=== PATIENT | female | born 1950 | race Caucasian/White ===

== ENCOUNTER → 2024-04-23 11:15 | Outpatient (CLI) | payer BC, SELFPAY ==
[2024-04-24 14:38] LABS: Candida species Negative (Negative); Gardnerella vaginalis Negative (Negative); Trichomoas vaginalis Negative (Negative)
== END ==
PROVIDERS: PCP Family Medicine; Visit Provider Obstetrics & Gynecology
DX: N89.8 Other specified noninflammatory disorders of vagina (principal)
CPT/HCPCS: 87480; 87510; 87660

== ENCOUNTER → 2024-06-19 15:54 | Outpatient (CLI) | payer BC, SELFPAY ==
[2024-06-19 16:33] LABS: Appearance Urine UA CLEAR; Bilirubin Urine UA NEGATIVE (NEGATIVE); Color Urine UA YELLOW; Glucose Urine UA NEGATIVE (Negative); Ketones Urine UA NEGATIVE (NEGATIVE); Leukocyte Esterase Urine UA NEGATIVE (NEGATIVE); Nitrite Urine UA NEGATIVE (Negative); Occult Blood Urine UA NEGATIVE (Negative); Protein Urine UA NEGATIVE (Negative); Specific Gravity Urine UA <=1.005 (1.000-1.035); Urobilinogen Urine UA 0.2 E.U./dL (0.2)
[2024-06-19 16:42] LABS: Bacteria Urine None Seen; Culture Indicated Urine Cult Not Indicated; RBC Urine None Seen (0-5/HPF); Squamous Epithelial Cell Urine None Seen (0-5/HPF); Urine Volume 10mL (spun); WBC Urine None Seen (0-5/HPF)
== END ==
PROVIDERS: PCP Family Medicine; Referring Provider Obstetrics & Gynecology; Visit Provider Obstetrics & Gynecology
DX: R30.0 Dysuria (principal)
CPT/HCPCS: 81001

== ENCOUNTER → 2024-06-23 14:33 | Outpatient (CLI) | payer BC, SELFPAY | PROVIDERS: PCP Family Medicine; Visit Provider Obstetrics & Gynecology | DX: R30.0 Dysuria (principal) | CPT/HCPCS: 87086 ==

== ENCOUNTER 2024-08-20 14:05 | Emergency (ER) | payer BC, SELFPAY ==
[2024-08-20] VITALS (12 sets, daily range): BP systolic 139–202; BP diastolic 68–132; PULSE 70–91; RESP 14–16; TEMP 36.7; O2SAT 97–100; BMI 23.1
--- NOTE | 2024-08-20 14:47 | EKG_ITS ---
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
[2024-08-20 14:49] LABS: Add Manual Diff / Slide Review NO; Basophils Absolute Auto 100 /uL (0-100); Eosinophils Absolute Auto 100 /uL (0-450); Eosinophils Percent Auto 1.5 % (2-4); Hematocrit 41.8 % (36-46); Hemoglobin 14.2 g/dL (12.0-16.0); Lymphocytes Absolute Auto 2300 /uL (1100-4500); Lymphocytes Percent Auto 35.1 % (25-40); Mean Corpuscular HGB Conc 33.9 % (30-36); Mean Corpuscular Hemoglobin 30.4 PG (26-34); Mean Corpuscular Volume 89.8 fL (80-100); Monocytes Absolute Auto 500 /uL (0-900); Monocytes Percent Auto 7.5 % (3-14); Neutrophils Absolute Auto 3600 /uL (1500-7000); Neutrophils Percent Auto 54.9 % (50-75); Platelet Count 286 X10^3/uL (150-400); Red Blood Cell Count 4.66 X10^6/uL (4.0-5.2); Red Cell Distribution Width 13.4 % (11.6-14.8); White Blood Cell Count 6.5 X10^3/uL (4.5-11.0)
[2024-08-20 15:02] LABS: Alanine Aminotransferase 25 IU/L (<35); Albumin 4.4 g/dL (3.5-5.0); Albumin Globulin Ratio 1.4 (1.0-2.8); Alkaline Phosphatase 77 U/L (38-126); Aspartate Aminotransferase 35 IU/L (14-36); BUN Creatinine Ratio 18.7 (6-22); Blood Urea Nitrogen 14 mg/dL (7-17); Calcium 9.1 mg/dL (8.4-10.2); Carbon Dioxide 24 mmol/L (22-32); Chloride 107 mmol/L (98-107); Cholesterol 279 mg/dL (140-199); Estimated Glomerular Filt Rate > 60 mL/min (>60); Globulin 3.2 g/dL (1.7-4.1); Glucose 99 mg/dL (80-110); HDL Cholesterol 52 mg/dL (40-60); HEMOLYSIS 17 (0-50); LDL Cholesterol Calculated 203 mg/dL (<100); Potassium 4.1 mmol/L (3.4-5.1); Sodium 137 mmol/L (137-145); Total Protein 7.6 g/dL (6.3-8.2); Triglycerides 120 mg/dL (35-150)
[2024-08-20 15:05] LABS: Hemoglobin A1C% w Est Avg Glu 5.5 % (4.0-6.0)
--- NOTE | 2024-08-20 15:49 | ED_ITS ---
HPI - Neuro Symptoms/Deficit General Chief Complaint: Neuro Symptoms/Deficit Stated Complaint: possible TIA Time Seen by Provider: 08/20/24 14:28 Source: patient Mode of arrival: Ambulatory History of Present Illness HPI Narrative: 74-year-old woman with a history of hypothyroid treated with [place] thyroid. Active lifestyle and minimal interaction with allopathic medical systems. States she had high cholesterol over 20 years ago the last time it was checked, has never been diagnosed with hypertension and does not have diabetes. She was seen by Ophthalmology today after an episode yesterday with cuevas cloud moving across the lower right eye visual field with loss of vision in the lower half of the visual field lasting approximately 20 seconds. Mild queasiness but no vomiting. No significant headache. She states she does have ocular migraines but this was distinctly different. Neurology Physician was concerned for TIA/stroke and send patient over for further evaluation. On Anticoagulants: No Related Data Home Medications Medication Instructions Recorded Confirmed thyroid (pork) 15 mg tablet 15 mg PO DAILY 04/05/22 06/23/24 ([facility] Thyroid) thyroid (pork) 60 mg tablet 60 mg PO DAILY 04/05/22 06/23/24 ([facility] Thyroid) Allergies Allergy/AdvReac Type Severity Reaction Status Date / Time neomycin Allergy Severe cellulitus Verified 06/23/24 14:12 hyaluronidase Allergy Intermediate eye Verified 06/23/24 14:12 swelling codeine [CODEINE] Allergy Unknown Verified 06/23/24 14:12 doxycycline [DOXYCYCLINE] Allergy Unknown Verified 06/23/24 14:12 Penicillins [PENICILLINS] Allergy Unknown Verified 06/23/24 14:12 Sulfa (Sulfonamide Allergy Unknown Verified 06/23/24 14:12 Antibiotics) [SULFA (SULFONAMIDE ANTIBIOTICS)] lidocaine AdvReac Intermediate Swelling Verified 06/23/24 14:12 SANDRA AdvReac Hives Uncoded 06/23/24 14:12 edta AdvReac Uncoded 06/23/24 14:12 hyaluronic acid AdvReac hives Uncoded 06/23/24 14:12 Review of Systems Review of Systems Narrative: Pertinent positive and negative findings as per HPI Hematologic/Lymphatic On Anticoagulants: No Patient History Medical History (Updated 08/20/24 @ 17:42 by Shavon Gandhi MD) Acquired short leg syndrome on left Chronic right-sided low back pain without sciatica Somatic dysfunction of abdominal region Sacral region somatic dysfunction Segmental and somatic dysfunction of pelvic region Lumbar region somatic dysfunction Thoracic region somatic dysfunction Cervical somatic dysfunction Cranial somatic dysfunction Skin problem (~2017) Anxiety Hip disease Mumps (~1954) Measles (~1954) Herpes Chicken pox (~1956) BPV (benign positional vertigo) Tinnitus Recurrent sinusitis Painful menstrual periods (~1961) Frequent UTI (~1969) Food allergy (~1999) Back stiffness Stiff neck Hypothyroidism (acquired) Hyperlipidemia Surgical History (Updated 06/07/20 @ 20:06 by Lucretia Aguilar) Anesthesia History of tonsillectomy Macular hole (~2019) Family History (Updated 06/07/20 @ 20:09 by Lucretia Aguilar) Father History of emphysema Mother Cancer Grandfather History of heart disease Grandmother Hypertension Grandfather Pneumonia Grandmother Suicide Social History Smoking Status: Never smoker Smoking Status: Never smoker Exam Initial Vital Signs Initial Vital Signs: Vital Signs Temperature 98.1 F 08/20/24 14:29 Pulse Rate 91 H 08/20/24 14:29 Respiratory Rate 14 08/20/24 14:29 Blood Pressure 185/86 H 08/20/24 14:29 Pulse Oximetry 99 08/20/24 14:29 Oxygen Delivery Method Room Air 08/20/24 14:29 General: Healthy appearing, in no acute distress. Able to give a complete and coherent history. Well-nourished well-developed HEENT: Moist mucous membranes, normal sclera with reactive pupils, extraocular eye movements are intact Respiratory: Lungs are clear to auscultation, no wheezing no rales no rhonchi. Full and symmetrical air movement Cardiac: Regular rate and rhythm no murmurs no bruits Abdomen: Soft, nontender, good bowel tones, no flank pain Skin: Warm and dry, no rashes Neurologic: Grossly neurologically intact with no obvious asymmetries or abnormalities. NIH=0 Extremities: No trauma, well perfused Psych: Cooperative, appropriate insight and affect Course Orders Ordered: ED Orders 08/20/24 14:25 Complete Blood Count AUTO DIFF Stat Comprehensive Metabolic Panel Stat Hemoglobin A1C% w Est Avg Glu Stat Lipid Panel Stat 08/20/24 14:43 EKG-12 Lead Stat 08/20/24 15:54 CT angio head and neck Stat CT head/brain wo con Stat Vital Signs Vital signs: Vital Signs - 8 hr 08/20/24 14:29 Temperature 98.1 F Pulse Rate 91 H Respiratory Rate 14 Blood Pressure 185/86 H Pulse Oximetry 99 Oxygen Delivery Method Room Air MDM - Neuro Symptoms/Deficit Lab Data 08/20/24 14:25 08/20/24 14:25 Labs: Lab Results 08/20/24 Range/Units 14:25 WBC 6.5 (4.5-11.0) X10^3/uL RBC 4.66 (4.0-5.2) X10^6/uL Hgb 14.2 (12.0-16.0) g/dL Hct 41.8 (36-46) % MCV 89.8 (80-100) fL MCH 30.4 (26-34) PG MCHC 33.9 (30-36) % RDW 13.4 (11.6-14.8) % Plt Count 286 (150-400) X10^3/uL Neut % (Auto) 54.9 (50-75) % Lymph % (Auto) 35.1 (25-40) % [place] % (Auto) 7.5 (3-14) % Eos % (Auto) 1.5 L (2-4) % Baso % (Auto) 1.0 (0-2) % Neut # (Auto) 3600 (3815-6006) /uL Lymph # (Auto) 2300 (9934-9646) /uL [place] # (Auto) 500 (0-900) /uL Eos # (Auto) 100 (0-450) /uL Baso # (Auto) 100 (0-100) /uL Sodium 137 (137-145) mmol/L Potassium 4.1 (3.4-5.1) mmol/L Chloride 107 (98-107) mmol/L Carbon Dioxide 24 (22-32) mmol/L BUN 14 (7-17) mg/dL Creatinine 0.75 (0.52-1.04) mg/dL Estimated GFR > 60 (>60) mL/min BUN/Creatinine Ratio 18.7 (6-22) Glucose 99 (80-110) mg/dL Hemoglobin A1c 5.5 (4.0-6.0) % Calcium 9.1 (8.4-10.2) mg/dL Total Bilirubin 1.0 (0.2-1.3) mg/dL AST 35 (14-36) IU/L ALT 25 (<35) IU/L Alkaline Phosphatase 77 (38-126) U/L Total Protein 7.6 (6.3-8.2) g/dL Albumin 4.4 (3.5-5.0) g/dL Globulin 3.2 (1.7-4.1) g/dL Albumin/Globulin Ratio 1.4 (1.0-2.8) Triglycerides 120 (35-150) mg/dL Cholesterol 279 H (140-199) mg/dL LDL Cholesterol, Calc 203 H (<100) mg/dL HDL Cholesterol 52 (40-60) mg/dL Imaging Data CT scan - head: Radiologist's Impression: PROCEDURE: CT HEAD/BRAIN WO CON INDICATIONS: TIA TECHNIQUE: Noncontrast 4.5 mm thick angled axial sections acquired from the foramen magnum to the vertex, with coronal and sagittal reformats. For radiation dose reduction, the following was used: automated exposure control, adjustment of mA and/or kV according to patient size. COMPARISON: [facility], CT, CT ANGIO HEAD AND NECK, 08/20/2024, 16:05. FINDINGS: Image quality: Diagnostic. CSF spaces: Basal cisterns are patent. No extra-axial fluid collections. The ventricles are symmetric in size and shape. Brain: No intracranial bleeds or masses. There is cerebral volume loss for age, with resultant ventricular and sulcal prominence. There are periventricular and deep white matter chronic small vessel ischemic changes. There is intracranial internal carotid artery atherosclerosis. Skull and face: Calvarium and visualized facial bones appear intact, without suspicious lesions. Sinuses: Visualized sinuses and mastoids are clear. IMPRESSION: 1. No acute intracranial process. 2. Moderate atrophy and chronic microvascular ischemic changes. Dictated by: Zeny Amador M.D. on 08/20/2024 at 16:45 CT angiogram head and neck: Radiologist's Impression: PROCEDURE: CT ANGIO HEAD AND NECK INDICATIONS: tia TECHNIQUE: After the administration of intravenous contrast, 1 mm thick sections acquired from the aortic arch through the [place] of [place]. 3-dimensional koybome-qbqmxqwbh-sibhlyqxrk (MIP) and/or volume rendering reformats were acquired of the central intracranial vasculature and neck separately. For radiation dose reduction, the following was used: automated exposure control, adjustment of mA and/or kV according to patient size. COMPARISON: [facility], CT, CT HEAD/BRAIN WO CON, 08/20/2024, 16:05. FINDINGS: Image quality: Diagnostic. BRAIN: See separately dictated CT brain report 08/20/2024. HEAD CT ANGIOGRAPHY: Anterior circulation: Intracranial internal carotid arteries are normal in size and flow. The flow within the paired anterior cerebral arteries is normal and symmetric. The flow within the middle cerebral arteries is normal and symmetric. The anterior communicating artery is seen. No aneurysms are seen. Posterior circulation: Visualized portions of the vertebral arteries demonstrate normal caliber, and join to form a normal appearing basilar artery. Flow within the posterior cerebral arteries is normal and symmetric. No aneurysms are seen. NECK CT ANGIOGRAPHY: Carotid system: The great vessels demonstrate a conventional anatomy as they arise from the aortic arch. The origins of the common carotid arteries appear patent. The common carotid arteries demonstrate normal caliber and courses. The bifurcation regions are both widely patent. The internal carotid arteries demonstrate normal calibers and courses. Posterior circulation: The origins of the vertebral arteries both appear widely patent. The more superior extracranial portions of both vertebral arteries also demonstrate normal courses and calibers. They join to form a normal appearing basilar artery. Soft tissues: Visualized neck soft tissues demonstrate no suspicious abnormalities. Bones: No suspicious bony lesions. Visualized cervical spine appears normally aligned. IMPRESSION: No significant intracranial arterial abnormality is seen. No significant abnormality is seen within the arteries of the neck. Any quantitative measurements of stenosis were performed using NASCET criteria. Dictated by: Zeny Amador M.D. on 08/20/2024 at 16:42 MDM Narrative Medical decision making narrative: CC: 20 seconds of amaurosis fugax symptoms right side lower peripheral field occurring yesterday Complicating co-morbidities: Hypothyroidism Data collected from: patient Medical records reviewed: Records from the ophthalmology office have been faxed over and reviewed Differential considered: Amaurosis fugax, TIA, ocular migraine Exam documented above, pertinent findings include: Exam at this time is entirely benign no neurologic complaints currently Lab Test results independently reviewed as above. Pertinent findings: CBC is unremarkable Chemistries are reassuring Cholesterol slightly elevated total of 279, LDL at 203, HDL at 52 Hemoglobin A1c is 5.5 Independently reviewed EKG: EKG shows sinus rhythm at a rate of 77 with no acute ischemic changes Imaging studies independently reviewed: CT of the head and CT angiogram of the head and neck do not show any acute pathology, old strokes or significant vascular abnormalities Discussion: 74-year-old woman with a history of ocular migraine 20 seconds of ocular abnormality yesterday with concern for possible TIA. Imaging studies are reassuring. We talked about minimizing risk factors. We will recommend an aspirin a day. Discussed lipid goals as well as blood pressure goals and referred her to her primary care physician. At this and there was no evidence of acute stroke and she is safe for discharge Discharge Plan Departure Patient Disposition: Home Clinical Impression: Ocular migraine Instructions: DI for Transient Ischemic Attack Activity Restrictions/Additional Instructions: Thank you for coming in today I suspect that this was a ocular migraine however the possibility of a TIA remains. The CT scan of your head and all of the blood vessels from the top of your aorta to the top of your head were quite reassuring. If this was a TIA recommendations for reducing risk for stroke include: Daily exercise, or in your case going for a walk to find the most perfect flower, for at least 20 minutes 5 times a week Having your LDL cholesterol at 120 or lower. Your current LDL cholesterol is 203. You have mentioned that you are completely intolerant to statins. Please discuss this with the new primary care physician Blood pressure goal is 120/70. Please check blood pressures at home to see what your baseline is to see if additional medications required. I would also recommend a baby aspirin a day. The downsides of minimal and the benefits are significant. If you find that you are getting worse or develop any new symptoms, please feel free to return to the emergency department for further evaluation. Prescriptions: No Action thyroid (pork) [[facility] Thyroid] 60 mg tablet 60 mg PO DAILY thyroid (pork) [[facility] Thyroid] 15 mg tablet 15 mg PO DAILY Referrals: Yoni Jimenez DO [Primary Care Provider] - Stand Alone Forms: Patient Portal/API/Survey
--- NOTE | 2024-08-20 15:54 | DI.CT.S_ITS ---
PROCEDURE: CT HEAD/BRAIN WO CON INDICATIONS: TIA TECHNIQUE: Noncontrast 4.5 mm thick angled axial sections acquired from the foramen magnum to the vertex, with coronal and sagittal reformats. For radiation dose reduction, the following was used: automated exposure control, adjustment of mA and/or kV according to patient size. COMPARISON: [facility], CT, CT ANGIO HEAD AND NECK, 08/20/2024, 16:05. FINDINGS: Image quality: Diagnostic. CSF spaces: Basal cisterns are patent. No extra-axial fluid collections. The ventricles are symmetric in size and shape. Brain: No intracranial bleeds or masses. There is cerebral volume loss for age, with resultant ventricular and sulcal prominence. There are periventricular and deep white matter chronic small vessel ischemic changes. There is intracranial internal carotid artery atherosclerosis. Skull and face: Calvarium and visualized facial bones appear intact, without suspicious lesions. Sinuses: Visualized sinuses and mastoids are clear. IMPRESSION: 1. No acute intracranial process. 2. Moderate atrophy and chronic microvascular ischemic changes. Dictated by: Zeny Amador M.D. on 08/20/2024 at 16:45 Approved by: Zeny Amador M.D. on 08/20/2024 at 16:46
--- NOTE | 2024-08-20 15:54 | DI.CT.S_ITS ---
PROCEDURE: CT ANGIO HEAD AND NECK INDICATIONS: tia TECHNIQUE: After the administration of intravenous contrast, 1 mm thick sections acquired from the aortic arch through the [place] of [place]. 3-dimensional kjijygh-iqpcplpjf-mpeqdobxhd (MIP) and/or volume rendering reformats were acquired of the central intracranial vasculature and neck separately. For radiation dose reduction, the following was used: automated exposure control, adjustment of mA and/or kV according to patient size. COMPARISON: [facility], CT, CT HEAD/BRAIN WO CON, 08/20/2024, 16:05. FINDINGS: Image quality: Diagnostic. BRAIN: See separately dictated CT brain report 08/20/2024. HEAD CT ANGIOGRAPHY: Anterior circulation: Intracranial internal carotid arteries are normal in size and flow. The flow within the paired anterior cerebral arteries is normal and symmetric. The flow within the middle cerebral arteries is normal and symmetric. The anterior communicating artery is seen. No aneurysms are seen. Posterior circulation: Visualized portions of the vertebral arteries demonstrate normal caliber, and join to form a normal appearing basilar artery. Flow within the posterior cerebral arteries is normal and symmetric. No aneurysms are seen. NECK CT ANGIOGRAPHY: Carotid system: The great vessels demonstrate a conventional anatomy as they arise from the aortic arch. The origins of the common carotid arteries appear patent. The common carotid arteries demonstrate normal caliber and courses. The bifurcation regions are both widely patent. The internal carotid arteries demonstrate normal calibers and courses. Posterior circulation: The origins of the vertebral arteries both appear widely patent. The more superior extracranial portions of both vertebral arteries also demonstrate normal courses and calibers. They join to form a normal appearing basilar artery. Soft tissues: Visualized neck soft tissues demonstrate no suspicious abnormalities. Bones: No suspicious bony lesions. Visualized cervical spine appears normally aligned. IMPRESSION: No significant intracranial arterial abnormality is seen. No significant abnormality is seen within the arteries of the neck. Any quantitative measurements of stenosis were performed using NASCET criteria. Dictated by: Zeny Amador M.D. on 08/20/2024 at 16:42 Approved by: Zeny Amador M.D. on 08/20/2024 at 16:45
== END 2024-08-20 18:36 | disposition home or self-care (01) ==
PROVIDERS: Emergency Provider Emergency Medicine; PCP Family Medicine
DX: G43.109 Migraine with aura, not intractable, without status migrainosus (principal); R79.89 Other specified abnormal findings of blood chemistry; R07.9 Chest pain, unspecified
CPT/HCPCS: 36415; 70450; 70496; 70498; 80053; 80061; 83036; 85025; 93005; 93010; 99284; Q9967

== ENCOUNTER → 2024-11-12 10:25 | Outpatient (CLI) | payer BC, SELFPAY ==
--- NOTE | 2024-11-12 10:26 | DI.US.S_ITS ---
PROCEDURE: US PERIPH VENOUS LOW EXTREM RT INDICATIONS: RLE swelling TECHNIQUE: Real-time imaging, as well as color and pulse Doppler interrogation, were performed of the lower extremity deep veins from the inguinal ligament to the popliteal fossa, with documentation of the visualized calf veins. COMPARISON: None. FINDINGS: The common femoral, femoral, popliteal, and the visualized calf veins are normally compressible, and free of intraluminal thrombus. Color and pulse Doppler demonstrate normal phasic intraluminal flow. There is normal augmentation response to distal compression maneuver. IMPRESSION: No findings of lower extremity deep venous thrombosis. Dictated by: Channing Hayward M.D. on 11/12/2024 at 9:52 Approved by: Channing Hayward M.D. on 11/12/2024 at 9:53
== END ==
PROVIDERS: PCP Naturopath; Referring Provider Physician Assistant Medical; Visit Provider Physician Assistant Medical
DX: M79.89 Other specified soft tissue disorders (principal)
CPT/HCPCS: 93971

== ENCOUNTER → 2024-12-03 09:04 | Outpatient (CLI) | payer BC, SELFPAY ==
[2024-12-03 10:06] LABS: Add Manual Diff / Slide Review NO; Basophils Absolute Auto 100 /uL (0-100); Basophils Percent Auto 1.2 % (0-2); Eosinophils Absolute Auto 200 /uL (0-450); Eosinophils Percent Auto 4.4 % (2-4); Hematocrit 41.3 % (36-46); Hemoglobin 14.2 g/dL (12.0-16.0); Lymphocytes Absolute Auto 1800 /uL (1100-4500); Lymphocytes Percent Auto 32.7 % (25-40); Mean Corpuscular HGB Conc 34.4 % (30-36); Mean Corpuscular Hemoglobin 30.5 PG (26-34); Mean Corpuscular Volume 88.8 fL (80-100); Monocytes Absolute Auto 400 /uL (0-900); Monocytes Percent Auto 7.9 % (3-14); Neutrophils Absolute Auto 3000 /uL (1500-7000); Neutrophils Percent Auto 53.8 % (50-75); Platelet Count 255 X10^3/uL (150-400); Red Blood Cell Count 4.65 X10^6/uL (4.0-5.2); Red Cell Distribution Width 13.2 % (11.6-14.8); White Blood Cell Count 5.6 X10^3/uL (4.5-11.0)
[2024-12-03 10:25] LABS: Hemoglobin A1C% w Est Avg Glu 5.4 % (4.0-6.0)
[2024-12-03 10:35] LABS: Alanine Aminotransferase 19 IU/L (<35); Albumin 4.3 g/dL (3.5-5.0); Albumin Globulin Ratio 1.5 (1.0-2.8); Alkaline Phosphatase 77 U/L (38-126); Aspartate Aminotransferase 29 IU/L (14-36); BUN Creatinine Ratio 16.9 (6-22); Bilirubin Total 1.1 mg/dL (0.2-1.3); Blood Urea Nitrogen 13 mg/dL (7-17); Calcium 9.4 mg/dL (8.4-10.2); Carbon Dioxide 25 mmol/L (22-32); Chloride 104 mmol/L (98-107); Cholesterol 261 mg/dL (140-199); Estimated Glomerular Filt Rate > 60 mL/min (>60); Globulin 2.9 g/dL (1.7-4.1); Glucose 101 mg/dL (80-110); HDL Cholesterol 54 mg/dL (40-60); HEMOLYSIS < 15 (0-50); LDL Cholesterol Calculated 189 mg/dL (<100); Potassium 4.4 mmol/L (3.4-5.1); Sodium 136 mmol/L (137-145); Total Protein 7.2 g/dL (6.3-8.2); Triglycerides 91 mg/dL (35-150)
[2024-12-03 11:05] LABS: Thyroid Stimulating Hormone 0.185 uIU/mL (0.47-4.68)
[2024-12-04 03:39] LABS: Apolipoprotein B 124 mg/dL (<90)
[2024-12-04 07:09] LABS: Thyroid Peroxidase Antibodies 356 IU/mL (0-34)
== END ==
LOC: LAB 09:07
PROVIDERS: PCP Naturopath; Referring Provider Naturopath; Visit Provider Naturopath
DX: Z00.00 Encounter for general adult medical examination without abnormal findings (principal); E06.3 Autoimmune thyroiditis; E78.00 Pure hypercholesterolemia, unspecified; R73.03 Prediabetes
CPT/HCPCS: 36415; 80053; 80061; 82172; 83036; 84439; 84443; 84481; 85025; 86376

== ENCOUNTER → 2025-02-22 15:36 | Outpatient (CLI) | payer BC, SELFPAY ==
[2025-02-22 17:13] LABS: Free T3, Triiodothyronine Free 5.81 pg/mL (2.77-5.27); Free T4, Direct Thyroxine 2.52 ng/dL (0.78-2.19)
[2025-02-22 17:29] LABS: Thyroid Stimulating Hormone < 0.015 uIU/mL (0.47-4.68)
== END ==
PROVIDERS: PCP Family Medicine; Referring Provider Family Medicine; Visit Provider Family Medicine
DX: E06.3 Autoimmune thyroiditis (principal)
CPT/HCPCS: 36415; 84439; 84443; 84481

== ENCOUNTER → 2025-06-21 13:48 | Outpatient (CLI) | payer BC, SELFPAY ==
[2025-06-21 15:31] LABS: Free T3, Triiodothyronine Free 5.08 pg/mL (2.77-5.27); Free T4, Direct Thyroxine 1.39 ng/dL (0.78-2.19)
[2025-06-21 15:45] LABS: Thyroid Stimulating Hormone 2.72 uIU/mL (0.47-4.68)
== END ==
PROVIDERS: PCP Family Medicine; Referring Provider Naturopath; Visit Provider Naturopath
DX: E06.3 Autoimmune thyroiditis (principal)
CPT/HCPCS: 36415; 84439; 84443; 84481